=== PATIENT | male | born 1995 | race Caucasian/White ===

== ENCOUNTER 2016-06-09 15:21 | Emergency (ER) | payer BC ==
[~2016-06-09] VITALS: Ht 175.3 cm; Wt 81.6 kg
[2016-06-09 15:39] VITALS: BP 139/74
[2016-06-09 16:31] LABS: WHITE BLOOD COUNT 5.2 K/UL (4.8-10.8)
[2016-06-09 16:32] LABS: BASOPHILS % (AUTO) 1.7 % (0.0-2.0); EOSINOPHILS % (AUTO) 3.1 % (0.0-3.0); LYMPHOCYTES % (AUTO) 30.3 % (20.0-45.0); MEAN CORPUSCULAR HEMOGLOBIN 29.7 PG (27.0-31.0); MEAN CORPUSCULAR VOLUME 87 FL (80-99); MONOCYTES % (AUTO) 8.7 % (1.0-10.0); NEUTROPHILS % (AUTO) 56.2 % (45.0-75.0); PLATELET COUNT 198 K/UL (150-450); RED CELL DISTRIBUTION WIDTH 12.7 % (11.6-14.8)
[2016-06-09 16:57] LABS: ALANINE AMINOTRANSFERASE 20 U/L (3-41); ALBUMIN/GLOBULIN RATIO 2.1 (1.0-2.7); ANION GAP 14 (5-15); ASPARTATE AMINO TRANSFERASE 35 U/L (5-40); CALCIUM 9.2 mg/dL (8.6-10.2); CARBON DIOXIDE 27 mEQ/L (20-30); CHLORIDE 99 mEQ/L (98-107); CREATININE 0.8 mg/dL (0.7-1.2); GLOMERULAR FILTRATION RATE > 60 mL/min (>60); HEMOLYSIS 4; POTASSIUM 3.9 mEQ/L (3.4-4.9); SODIUM 140 mEQ/L (135-145); TOTAL PROTEIN 6.9 g/dL (6.6-8.7); TROPONIN I < 0.30 ng/mL (<=0.30)
[2016-06-09 17:07] LABS: CKMB 3.2 ng/mL (< 6.7)
[2016-06-09] MEDS ORDERED: IBUPROFEN600 MG ORAL (17:26)
[2016-06-09 17:35] VITALS: BP 139/74
--- NOTE | 2016-06-09 22:59 | Emergency Room Report ---
History of Present Illness General Chief Complaint: Chest Pain Source: Patient Present Illness HPI 21-year-old male presents ED complaining of chest pain. States pain started this morning when he woke up. Pain is left-sided, sharp, intermittent. Nonradiating. Worse with deep breaths. No other aggravating or relieving factors. Denies fevers chills or cough. Denies drug use. Denies any other associated symptoms Allergies: Coded Allergies: No Known Allergies (Unverified , 06/09/16) Patient History Past Medical History: none Past Surgical History: none Pertinent Family History: none Social History: Denies: alcohol use, drug use, smoking Immunizations: UTD Reviewed Nursing Documentation: PMH: Agreed, PSxH: Agreed Nursing Documentation-PMH Past Medical History: No Stated History Review of Systems All Other Systems: negative except mentioned in HPI Physical Exam Vital Signs Date Time Temp Pulse Resp B/P Pulse Ox O2 Delivery O2 Flow Rate FiO2 06/09/16 15:24 98.2 88 18 125/74 98 Room Air Sp02 EP Interpretation: reviewed, normal General Appearance: no apparent distress, alert, GCS 15, non-toxic Head: normocephalic, atraumatic Eyes: bilateral eye PERRL, bilateral eye normal inspection ENT: hearing grossly normal, normal pharynx, no angioedema, normal voice Neck: full range of motion, supple/symm/no masses Respiratory: chest non-tender, lungs clear, normal breath sounds, speaking full sentences Cardiovascular #1: regular rate, rhythm, no edema Cardiovascular #2: 2+ carotid (R), 2+ carotid (L), 2+ radial (R), 2+ radial (L) , 2+ dorsalis pedis (R), 2+ dorsalis pedis (L) Gastrointestinal: normal bowel sounds, non tender, soft, non-distended, no guarding, no rebound Rectal: deferred Genitourinary: normal inspection, no CVA tenderness Musculoskeletal: back normal, gait/station normal, normal range of motion, non- tender Neurologic: alert, oriented x3, responsive, motor strength/tone normal, sensory intact, speech normal Psychiatric: judgement/insight normal, memory normal, mood/affect normal, no suicidal/homicidal ideation Reflexes: 3+ bicep (R), 3+ bicep (L), 3+ tricep (R), 3+ tricep (L), 3+ knee (R) , 3+ knee (L) Skin: normal color, no rash, warm/dry, well hydrated Lymphatic: no adenopathy Medical Decision Making Diagnostic Impression: Primary Impression: Chest pain Qualified Codes: R07.9 - Chest pain, unspecified ER Course Hospital Course 21-year-old M presents ED complaining of chest pain Differential diagnoses include: Rib fracture, ID/unstable angina, contusion, muscle strain Clinical course Patient placed on stretcher. After initial history and physical I ordered labs , EKG, chest x-ray. labs reviewed- all electrolytes normal, troponins negative, no leukocytosis, hemoglobin/hematocrit stable, d-dimer normal Chest x-ray-no cardiomegaly, no rib fracture, no pneumothorax, no acute process per HEART score, patient is at low risk for acute event given lack of risk factors. Patient can be safely discharged to home pending outpatient followup. pain is likely muscular I. I feel this is a highly complex case requiring extensive working including EKG/Rhythm strip, Xray/CT/US, Blood/urine lab work, repeat exams while in ED, and administration of strong opiates/narcotics for pain control, admission to hospital or close patient follow up. Diagnosis - chest pain Stable and discharged to home with Rx Motrin. Instructed to followup with PMD. Return to ED if symptoms recur or worsen Labs Test 06/09/16 16:00 White Blood Count 5.2 K/UL (4.8-10.8) Red Blood Count 5.10 M/UL (4.70-6.10) Hemoglobin 15.1 G/DL (14.2-18.0) Hematocrit 44.4 % (42.0-52.0) Mean Corpuscular Volume 87 FL (80-99) Mean Corpuscular Hemoglobin 29.7 PG (27.0-31.0) Mean Corpuscular Hemoglobin Concent 34.0 G/DL (32.0-36.0) Red Cell Distribution Width 12.7 % (11.6-14.8) Platelet Count 198 K/UL (150-450) Mean Platelet Volume 9.0 FL (6.5-10.1) Neutrophils (%) (Auto) 56.2 % (45.0-75.0) Lymphocytes (%) (Auto) 30.3 % (20.0-45.0) Monocytes (%) (Auto) 8.7 % (1.0-10.0) Eosinophils (%) (Auto) 3.1 % (0.0-3.0) Basophils (%) (Auto) 1.7 % (0.0-2.0) D-Dimer 275 ng/mL (<500) Sodium Level 140 mEQ/L (135-145) Potassium Level 3.9 mEQ/L (3.4-4.9) Chloride Level 99 mEQ/L (98-107) Carbon Dioxide Level 27 mEQ/L (20-30) Anion Gap 14 (5-15) Blood Urea Nitrogen 7 mg/dL (7-23) Creatinine 0.8 mg/dL (0.7-1.2) Estimat Glomerular Filtration Rate > 60 mL/min (>60) Glucose Level 104 mg/dL (74-106) Calcium Level 9.2 mg/dL (8.6-10.2) Total Bilirubin 0.3 mg/dL (0.0-1.2) Aspartate Amino Transf (AST/SGOT) 35 U/L (5-40) Alanine Aminotransferase (ALT/SGPT) 20 U/L (3-41) Alkaline Phosphatase 52 U/L (40-129) Total Creatine Kinase 635 U/L (38-174) Creatine Kinase MB 3.2 ng/mL (< 6.7) Creatine Kinase MB Relative Index 0.5 Troponin I < 0.30 ng/mL (<=0.30) Total Protein 6.9 g/dL (6.6-8.7) Albumin 4.7 g/dL (3.5-5.2) Globulin 2.2 g/dL Albumin/Globulin Ratio 2.1 (1.0-2.7) EKG Diagnostic Results Rate: normal Rhythm: NSR ST Segments: no acute changes ASA given to the pt in ED: No Rhythm Strip Diag. Results EP Interpretation: yes Rhythm: NSR, no PVC's, no ectopy Chest X-Ray Diagnostic Results EP Interpretation: No Findings: no consolidation, no effusion, no pneumothorax, no acute cardiopulmonary disease Number of Views: 1 Last Vital Signs Date Time Temp Pulse Resp B/P Pulse Ox O2 Delivery O2 Flow Rate FiO2 06/09/16 15:39 88 18 Room Air 06/09/16 15:39 98.2 139/74 98 Status: improved Disposition: HOME, SELF-CARE Condition: Stable Scripts Ibuprofen* (MOTRIN*) 600 Mg Tablet 600 MG ORAL Q8H Y for For Pain, #30 TAB 0 Refills Prov: BRIE CADE M.D. 06/09/16 Referrals: NOT CHOSEN IPA/,REFERRING (PCP) Patient Instructions: Nonspecific Chest Pain BRIE CADE M.D. Jun 09, 2016 22:59
--- NOTE | 2016-06-10 12:52 | Diagnostic Imaging Report ---
Indication: Chest pain Technique: Single portable AP view of the chest. Findings: Comparison: None. The bones and extra pulmonary soft tissues, cardiomediastinal silhouette, pulmonary vasculature and parenchyma, and pleural surfaces are unremarkable. IMPRESSION: Negative portable AP chest.
--- NOTE | 2016-06-15 08:46 | Cardiology Report ---
APPROVED REPORT EKG Measurement Heart [id number] Normal sinus rhythm Normal ECG
== END 2016-06-09 17:31 | disposition home or self-care (01) ==
LOC: EMR 16:00
DX: R07.9 Chest pain, unspecified (principal)
CPT/HCPCS: 36415; 71010; 80053; 82550; 82553; 84484; 85025; 85379; 93005; 96374

== ENCOUNTER 2018-01-14 18:43 | Emergency (ER) | payer SELFPAY ==
[~2018-01-14] VITALS: Ht 177.8 cm; Wt 86.2 kg
[~2018-01-14 18:43] MED LIST: IBUPROFEN600 MG ORAL
[2018-01-14] MEDS ORDERED: Sodium Chloride 500ML 500 ML IV ONE (18:46)
--- NOTE | 2018-01-14 18:55 | Emergency Room Report ---
History of Present Illness General Chief Complaint: Overdose Source: Patient (Betsey Ramirez DO) Present Illness HPI Patient presents with reports of overdose on heroin Patient reports that he injected the heroin into his right antecubital fossa Girlfriend arrived to find the patient unresponsive There was some questionable'light'CPR initiated as well by her Paramedics administered Narcan and the patient had acute response Presents tremulous and cold However awake and alert denies any chest pain he does have some palpitations (LivierBetsey umanzor DO) Allergies: Coded Allergies: No Known Allergies (Unverified , 06/09/16) Patient History Past Medical History: see triage record Past Surgical History: none Reviewed Nursing Documentation: PMH: Agreed; PSxH: Agreed (LivierernaBetsey PINEDA) Nursing Documentation-PMH Past Medical History: No History, Except For History Of Psychiatric Problem: Yes - substance abuse (NachoBetsey fournier DO) Review of Systems All Other Systems: negative except mentioned in HPI (LivierBetsey umanzor DO) Physical Exam Vital Signs Date Time Temp Pulse Resp B/P (MAP) Pulse Ox O2 Delivery O2 Flow Rate FiO2 01/14/18 18:39 96.7 130 20 151/86 99 Non-Rebreather 96.6 Sp02 EP Interpretation: reviewed, normal General Appearance: mild distress - Anxious Head: normocephalic, atraumatic Eyes: bilateral eye PERRL, bilateral eye EOMI ENT: hearing grossly normal, normal pharynx, TMs + canals normal, uvula midline Neck: full range of motion, supple, no meningismus, no bony tend Respiratory: lungs clear, normal breath sounds, no rhonchi, no respiratory distress, no retraction, no accessory muscle use Cardiovascular #1: normal peripheral pulses, no edema, no gallop, no JVD, no murmur, tachycardia Gastrointestinal: normal bowel sounds, non tender, soft, no mass, no organomegaly, non-distended, no guarding, no hernia, no pulsatile mass, no rebound Musculoskeletal: normal inspection Neurologic: oriented x3, responsive, propellant charge zone assembler III-XII nml as tested, motor strength/ tone normal, sensory intact Psychiatric: mood/affect normal Skin: normal color, no rash, warm/dry, palpation normal Lymphatic: normal inspection, no adenopathy (LivierBetsey umanzor DO) Medical Decision Making ER Course I evaluated patient. I spoke with girlfriend. Both patient and girlfriend insist on leaving after on 90 minutes of observation after receiving naloxone. Patient did admit that he overdosed on heroin. His girlfriend says that she will "watch him". They both verbalized understanding of respiratory depression and . Nurse witnessed AMA signature on form. Both patient and significant other have decision making capacity. Patient is ambulatory and awake upon discharge against medical advice. (Rufina Vickers MD) Last Vital Signs Date Time Temp Pulse Resp B/P (MAP) Pulse Ox O2 Delivery O2 Flow Rate FiO2 01/14/18 18:39 96.7 130 20 151/86 99 Non-Rebreather 96.6 (Betsey Ramirez DO) Betsey Ramirez DO Jan 14, 2018 18:55 Rufina Vickers MD Jan 14, 2018 21:14
[2018-01-14 18:58] VITALS: BP 138/97
[2018-01-14 19:19] LABS: BASOPHILS % (AUTO) 1.1 % (0.0-2.0); EOSINOPHILS % (AUTO) 0.5 % (0.0-3.0); HEMATOCRIT 47.8 % (42.0-52.0); HEMOGLOBIN 16.6 G/DL (14.2-18.0); LYMPHOCYTES % (AUTO) 12.7 % (20.0-45.0); MEAN CORPUSCULAR VOLUME 87 FL (80-99); MONOCYTES % (AUTO) 6.9 % (1.0-10.0); NEUTROPHILS % (AUTO) 78.7 % (45.0-75.0); PLATELET COUNT 202 K/UL (150-450); RED BLOOD COUNT 5.47 M/UL (4.70-6.10); RED CELL DISTRIBUTION WIDTH 11.6 % (11.6-14.8)
[2018-01-14 19:30] LABS: ANION GAP 15 mmol/L (5-15); BLOOD UREA NITROGEN 19 mg/dL (7-18); CARBON DIOXIDE 26 MMOL/L (21-32); CHLORIDE 94 MMOL/L (98-107); CREATININE 1.8 MG/DL (0.55-1.30); POTASSIUM 4.3 MMOL/L (3.5-5.1); SODIUM 135 MMOL/L (136-145)
[2018-01-14 19:43] LABS: ALANINE AMINOTRANSFERASE 45 U/L (12-78); ALBUMIN 4.4 G/DL (3.4-5.0); ALKALINE PHOSPHATASE 76 U/L (46-116); ASPARTATE AMINO TRANSFERASE 68 U/L (15-37); BILIRUBIN,TOTAL 0.9 MG/DL (0.2-1.0); CREATINE KINASE 1722 U/L (26-308)
[2018-01-14 21:15] VITALS: BP 137/96
--- NOTE | 2018-01-15 09:36 | Diagnostic Imaging Report ---
Indication: Chest pain Technique: One view of the chest Comparison: 06/09/2016 Findings: Lungs and pleural spaces are clear. Heart size is normal Impression: No acute process
--- NOTE | 2018-01-16 21:28 | Cardiology Report ---
APPROVED REPORT EKG Measurement Heart [id number] Atrial tachycardia Early repolarization Otherwise normal ECG
== END 2018-01-14 21:15 | disposition left against medical advice (07) ==
LOC: EDBD 18:43 → EMR 19:10
DX: T40.1X1A Poisoning by heroin, accidental (unintentional), initial encounter (principal); Y92.89 Other specified places as the place of occurrence of the external cause; Z53.21 Procedure and treatment not carried out due to patient leaving prior to being seen by health care provider
CPT/HCPCS: 36415; 71045; 80053; 80184; 82550; 85025; 93005; 96360; 96361; 99284